=== PATIENT | female | born 1950 | race Caucasian/White ===

== ENCOUNTER 2017-04-09 16:02 | Emergency (ER) | payer OTHER ==
[~2017-04-09] VITALS: Ht 160 cm; Wt 70.9 kg
[2017-04-09 16:16] VITALS: Ht 160 cm; Wt 70.9 kg
[2017-04-09] MEDS ORDERED: IBUPROFEN 600 MG TAB PO ONE (19:00)
[2017-04-09] MEDS ORDERED: HYDROCODONE/APAP (5/325) TAB PO ONE (19:00)
--- NOTE | 2017-04-09 19:05 | ERD ---
ER Documentation Chief Complaint Chief Complaint left hand pain s/p slip and fall today, no head injury HPI 66-year-old female who states that she had a slip and fall today in the kitchen to her left hand and is complaining of left palmar pain, left wrist pain. Patient was in the kitchen and there was a slippery area which she had felt herself falling backwards and she caught herself with her left hand outstretched behind her hyperextended. Patient complains of diffuse pain in her left palm going to her left wrist, is achy, worse in movement better at rest. She denies any paresthesias or weakness. The patient denies any other injuries. She denies syncope, dizziness, palpitations, shortness of breath, chest pain. ROS All systems reviewed and are negative except as per history of present illness. Medications Home Meds Active Scripts Hydrocodone/Acetaminophen (Bell Buckle 5-325 Tablet) 1 Each Tablet, 1 TAB PO Q6H Y for PAIN, #7 TAB Prov:REBECCA SAN PA-C 04/09/17 Ibuprofen* (Motrin*) 400 Mg Tab, 400 MG PO Q6, #30 TAB Prov:REBECCA SAN PA-C 04/09/17 Allergies Allergies: Coded Allergies: No Known Drug Allergies (Verified Allergy, Unknown, 04/09/17) PMhx/Soc Medical and Surgical Hx: pt denies Medical Hx Hx Alcohol Use: No Hx Substance Use: No Hx Tobacco Use: No Physical Exam Vitals Vital Signs Date Time Temp Pulse Resp B/P Pulse Ox O2 Delivery O2 Flow Rate FiO2 04/09/17 16:16 Physical Exam General: Well-developed, well-nourished. The patient appears in no acute distress. HEENT: Head is normocephalic, atraumatic. No scleral icterus. Neck: Supple. Nontender. Lungs: Clear to auscultation. Normal air movement. Heart: Regular rate and rhythm. S1 and S2 are normal. No murmurs, gallops, or rubs. Abdomen: Nondistended. Extremities patient has soft tissue swelling the left palm, there is ecchymosis. Soft tissue swelling at the proximal phalanx of left fourth digit. Patient has full range of motion in all digits of the left hand. There is no snuffbox tenderness, radial, ulnar, median nerve intact. Neurologic: Alert and oriented 3. No focal deficits. Normal speech and gait. Skin: Normal turgor. No rash or lesions. Results 24 hrs Current Medications Medications (Trade) Dose Ordered Sig/Kimberly Route PRN Reason Start Time Stop Time Status Last Admin Dose Admin Acetaminophen/ Hydrocodone Bitart (Bell Buckle (5/325)) 1 tab ONCE ONCE PO 04/09/17 19:00 04/09/17 19:01 DC 04/09/17 19:04 Ibuprofen (Motrin) 600 mg ONCE ONCE PO 04/09/17 19:00 04/09/17 19:01 DC 04/09/17 19:04 DIAGNOSTIC IMAGING REPORT Patient: RICHARDSON COFFMAN : 1950 Age: 66 Sex: F MR #: [id number] DOS: 04/09/171855 Ordering MD: REBECCA SAN PA-C Location: [facility] Room/Bed: PROCEDURE: XR LEFT WRIST. CLINICAL INDICATION: The patient fell. TECHNIQUE: 4 views of the left wrist were obtained. COMPARISON: No prior studies are available for comparison. FINDINGS: There is moderate arthrosis of the first carpal metacarpal joint and triscaphe joint. No fracture, subluxation or dislocation is identified. The bones are osteopenic. Bony alignment is within normal limits.. IMPRESSION: 1. No evidence for fracture, subluxation, or dislocation. 2. Moderate arthrosis of the triscaphe joint and first carpal metacarpal joint. RPTAT: XX .Elio Andrade MD, MD Date Time Electronically viewed and signed by .Elio Andrade MD, MD on 04/09/2017 19: 39 .T/ CC: REBECCA SAN PA-C DIAGNOSTIC IMAGING REPORT Patient: RICHARDSON COFFMAN : 1950 Age: 66 Sex: F MR #: [id number] DOS: 04/09/171855 Ordering MD: REBECCA SAN PA-C Location: [facility] Room/Bed: PROCEDURE: XR Left Hand. CLINICAL INDICATION: The patient fell. TECHNIQUE: Three views of the left hand were obtained. COMPARISON: No prior studies are available for comparison. FINDINGS: There is moderate arthrosis of the first carpal metacarpal joint and triscaphe joint. The bones are osteopenic. Bony alignment is within normal limits. No evidence for fracture, subluxation, or dislocation. A marker was placed adjacent to the hypo thenar region of the left hand. No underlying fractures seen. No underlying radiopaque foreign body or soft tissue air is seen. IMPRESSION: 1. No evidence for fracture, subluxation, or dislocation. 2. Moderate first carpal-metacarpal joint and triscaphe joint arthrosis. 3. Osteopenia. 4. No radiopaque foreign body or soft tissue air is seen. RPTAT: XX .Elio Andrade MD, MD Date Time Electronically viewed and signed by .Elio Andrade MD, MD on 04/09/2017 19: 42 .T/ CC: REBECCA SAN PA-C Procedures/MDM ED course: The patient was given ibuprofen and Bell Buckle. Splinting: The patient's left wrist and hand are placed in a Velcro wrist splint. Splint Assessment: Neurovascularly intact post splint placement with good fit. Patient's left fourth digit was splinted with a metal finger splint. Splint Assessment: Neurovascularly intact post splint placement with good fit. Her left arm was placed in a sling for comfort. Medical decision making: The patient is a 66-year-old female presenting with left hand and left wrist pain after slip and fall in the kitchen today. No other injuries noted. Patient's x-rays of the left wrist and left hand reviewed by the radiologist are negative for acute fracture dislocation, she does have joint space narrowing most consistent with arthritis. The patient does have pain at this time she was placed in a Velcro wrist splint as well as metal finger splint her left fourth digit. She will be given a short course of Bell Buckle and ibuprofen for pain. Departure Diagnosis: Primary Impression: Injury of hand Additional Impressions: Sprain, finger Left wrist sprain Condition: Good REBECCA SAN PA-C Apr 09, 2017 19:05
--- NOTE | 2017-04-09 19:40 | RADRPT ---
PROCEDURE: XR LEFT WRIST. CLINICAL INDICATION: The patient fell. TECHNIQUE: 4 views of the left wrist were obtained. COMPARISON: No prior studies are available for comparison. FINDINGS: There is moderate arthrosis of the first carpal metacarpal joint and triscaphe joint. No fracture, s ubluxation or dislocation is identified. The bones are osteopenic. Bony alignment is within normal l imits.. IMPRESSION: 1. No evidence for fracture, subluxation, or dislocation. 2. Moderate arthrosis of the triscaphe joint and first carpal metacarpal joint. RPTAT: XX .Elio Andrade MD, MD Date Time Electronically viewed and signed by .Elio Andrade MD, MD on 04/09/2017 19:39 .T/
--- NOTE | 2017-04-09 19:42 | RADRPT ---
PROCEDURE: XR Left Hand. CLINICAL INDICATION: The patient fell. TECHNIQUE: Three views of the left hand were obtained. COMPARISON: No prior studies are available for comparison. FINDINGS: There is moderate arthrosis of the first carpal metacarpal joint and triscaphe joint. The bones are osteopenic. Bony alignment is within normal limits. No evidence for fracture, subluxation, or disloc ation. A marker was placed adjacent to the hypo thenar region of the left hand. No underlying fractu res seen. No underlying radiopaque foreign body or soft tissue air is seen. IMPRESSION: 1. No evidence for fracture, subluxation, or dislocation. 2. Moderate first carpal-metacarpal joint and triscaphe joint arthrosis. 3. Osteopenia. 4. No radiopaque foreign body or soft tissue air is seen. RPTAT: XX .Elio Andrade MD, Date Time Electronically viewed and signed by .Elio Andrade MD, on 04/09/2017 19:42 .T/
[2017-04-09] MEDS ORDERED: HYDR-906 PO (19:47)
[2017-04-09] MEDS ORDERED: IBUP400T22 PO (19:47)
[2017-04-09 19:54] VITALS: BP 153/96; PULSE 67; RESP 16; TEMP 97.5
== END 2017-04-09 19:55 | disposition home or self-care (01) ==
LOC: FTE 16:02
DX: S63.502A Unspecified sprain of left wrist, initial encounter (principal); W01.0XXA Fall on same level from slipping, tripping and stumbling without subsequent striking against object, initial encounter; Y92.000 Kitchen of unspecified non-institutional (private) residence as the place of occurrence of the external cause
CPT/HCPCS: 29125; 73110; 73130; Z7502; Z7610

== ENCOUNTER 2017-04-12 10:04 | Emergency (ER) | payer OTHER ==
[~2017-04-12] VITALS: Ht 157.5 cm; Wt 69.6 kg
[~2017-04-12 10:04] MED LIST: HYDR-906 PO; IBUP400T22 PO
[2017-04-12 10:05] VITALS: Ht 157.5 cm; Wt 69.6 kg
[2017-04-12] MEDS ORDERED: ONDANSETRON (ODT) 4 MG TAB ODT STA (10:42)
--- NOTE | 2017-04-12 10:54 | ERD ---
ER Documentation Chief Complaint Chief Complaint HAS LEFT HAND PAIN AND SWELLING SEEN HERE 3 DAYS AGO HPI 66-year-old female presenting 3 days status post backwards fall with impact to right hand/wrist. Was evaluated and x-rays were obtained in the ER. Patient was sent home with Newberry and ibuprofen. Patient states that the swelling and pain has increased despite prescribed medication. Has been wearing splint the entire time without removal. Pain 10/10 and worse with lowering of the right extremity. Denies numbness, tingling, loss of range of motion. Patient has no other complaints and describes no other associated manifestations. ROS All systems reviewed and are negative except as per history of present illness. Medications Home Meds Active Scripts Hydrocodone/Acetaminophen (Newberry 5-325 Tablet) 1 Each Tablet, 1 TAB PO Q6H Y for PAIN, #7 TAB Prov:REBECCA SAN PA-C 04/09/17 Ibuprofen* (Motrin*) 400 Mg Tab, 400 MG PO Q6, #30 TAB Prov:REBECCA SAN PA-C 04/09/17 Allergies Allergies: Coded Allergies: No Known Drug Allergies (Verified Allergy, Unknown, 04/09/17) PMhx/Soc Medical and Surgical Hx: pt denies Medical Hx, pt denies Surgical Hx Hx Alcohol Use: No Hx Substance Use: No Hx Tobacco Use: No Smoking Status: Never smoker Physical Exam Vitals Vital Signs Date Time Temp Pulse Resp B/P Pulse Ox O2 Delivery O2 Flow Rate FiO2 04/12/17 10:05 98.0 77 18 147/74 99 Physical Exam Const: Overweight 66-year-old female no acute distress Ext: Marked swelling of the right hand. Mild discrete anatomical snuffbox tenderness. Decreased range of motion secondary to pain. Skin: No petechiae or rashes Head: Atraumatic Eyes: Normal Conjunctiva. PERRLA, EOMI. Neck: Full range of motion..~ No meningismus. Resp: Equal chest expansion. No tripoding or use of accessory muscles. Cardio: Cap refill less than 2 seconds. Radial pulses 2+ bilaterally. Back: No midline or flank tenderness Neur: Awake and alert. Sensation intact. Psych: Normal Mood and Affect Results 24 hrs Current Medications Medications (Trade) Dose Ordered Sig/Kimberly Route PRN Reason Start Time Stop Time Status Last Admin Dose Admin Oxycodone/ Acetaminophen (Percocet (5/ 325)) 1 tab ONCE ONCE PO 04/12/17 11:00 04/12/17 11:01 DC 04/12/17 10:47 Ondansetron HCl (Zofran Odt) 4 mg ONCE STAT ODT 04/12/17 10:42 04/12/17 10:43 DC 04/12/17 10:47 Procedures/MDM Patient returns to emergency department 3 days status post fall backwards with injury to the left wrist. Patient has mild anatomical snuffbox tenderness. Radiographs are repeated. Radiographs are read by the radiologist given the following impressions: No acute osseous abnormality including fracture or dislocation. Soft tissue swelling. No evidence of navicular fracture. At this time I have no suspicion for acute bony pathology, neurovascular compromise including compartment syndrome. Most likely diagnosis is hand contusion. Have recommended that the patient follow-up with orthopedics in the next week. Referrals has been given. Thumb spica has been applied due to snuffbox tenderness. N/V intact after application. 2 3 day follow-up recommended. Ortho list given. I have spoke with the patient regarding their condition and future management. They have verbally responded that they understand their status and treatment plan. The patients vitals are stable, and their current condition is appropriate for discharge. The patient will be given discharge instructions with return precautions. Departure Diagnosis: Primary Impression: Injury of hand Encounter type: initial encounter Laterality: left Qualified Code: S69.92XA - Injury of left hand, initial encounter Condition: Stable Additional Instructions: Follow-up with orthopedics in the next 3 days. Return the the emergency department immediately if symptoms worsen or change. If you have any questions regarding medications, ask your pharmacist or us before you leave. If any adverse reactions occur while taking your medications, discontinue the treatment and return to the emergency department immediately. Take your medications as directed, and complete the entire course of treatment. LESLIE SADLER PA-C Apr 12, 2017 10:54
[2017-04-12] MEDS ORDERED: OXYCODONE/ACETAMINOPHEN (5/325) TAB PO ONE (11:00)
[2017-04-12] MEDS ORDERED: HYDR-906 PO (12:45)
[2017-04-12 12:48] VITALS: BP 125/68; PULSE 72; RESP 18
--- NOTE | 2017-04-12 16:51 | RADRPT ---
PROCEDURE: Left hand series CLINICAL INDICATION: Pain status post fall TECHNIQUE: AP lateral and oblique views of the left hand COMPARISON: None available FINDINGS: No acute fractures or dislocations are present. Joint space narrowing is noted of the trapezium and first metacarpal joint and of the left second through fifth distal interphalangeal joints and proxim al interphalangeal joints. No radiodense foreign bodies are present. IMPRESSION: 1. No acute fractures or dislocations are present. 2. Mild osteoarthritis as indicated above. RPTAT: HDC .Cee Walker MD, MD Date Time Electronically viewed and signed by .Cee Walker MD, on 04/12/2017 11:13 .C/
--- NOTE | 2017-04-12 16:51 | RADRPT ---
PROCEDURE: Left wrist x-ray CLINICAL INDICATION: Trauma. TECHNIQUE: AP, lateral, and oblique views of the left wrist. COMPARISON: None. FINDINGS: There is no evidence of fracture or dislocation. The bones are normal mineralization without cortical destruction. The carpal bones are normally aligned and joint space is well-maintained. The remaining visualized bones of the hand are unremarkable. No soft tissue abnormality. IMPRESSION: 1. No evidence of fracture or dislocation. If clinical symptoms persist, CT or MRI may be considered for further evaluation of the navicular bone. RPTAT:AAJJ Physician Ashely Date Time Electronically viewed and signed by Physician Ashely on 04/12/2017 11:19 ADITHYA/
--- NOTE | 2017-04-12 16:51 | RADRPT ---
PROCEDURE: Left forearm series CLINICAL INDICATION: Pain status post trauma and fall TECHNIQUE: AP and lateral views COMPARISON: None available FINDINGS: No acute fractures or dislocations are noted. Joint space narrowing and degenerative changes are aga in noted of the trapezium and first metacarpal joint and the radiocarpal joints. No soft tissue swel ling or radiodense foreign bodies present IMPRESSION: 1. No acute fractures or dislocations. 2. Osteoarthritis as noted above RPTAT: HDC .Cee Walker MD, Date Time Electronically viewed and signed by .Cee Walker MD, MD on 04/12/2017 11:22 .C/
== END 2017-04-12 12:49 | disposition home or self-care (01) ==
LOC: FTE 10:04
DX: S69.92XA Unspecified injury of left wrist, hand and finger(s), initial encounter (principal); W18.39XA Other fall on same level, initial encounter; Y92.9 Unspecified place or not applicable
CPT/HCPCS: 29125; 73090; 73110; 73130; Z7502; Z7610

== ENCOUNTER 2017-06-08 12:02 | Emergency (ER) | END 2017-06-08 18:46 | disposition home or self-care (01) ==

== ENCOUNTER 2017-10-08 10:03 | Emergency (ER) | END 2017-10-08 14:15 | disposition home or self-care (01) ==

== ENCOUNTER 2018-01-29 23:26 | Observation (INO) | END 2018-01-31 18:00 | disposition home or self-care (01) ==

== ENCOUNTER 2018-06-13 09:43 | Emergency (ER) | payer OTHER ==
[~2018-06-13] VITALS: Ht 165.1 cm; Wt 70.9 kg
[~2018-06-13 09:43] MED LIST changes: +ATOR20TA65 PO; +GLIM2TAB PO; -HYDR-906 PO; -IBUP400T22 PO; +METF500T PO
[2018-06-13 09:46] VITALS: Ht 165.1 cm; Wt 70.9 kg
[2018-06-13] MEDS ORDERED: SOD CHLORIDE 0.9% 1,000 ML IV STA (10:22)
[2018-06-13] MEDS ORDERED: KETOROLAC 15 MG INJ IV STA (10:23)
[2018-06-13] MEDS ORDERED: LORAZEPAM 2 MG INJ IV ONE (10:30)
[2018-06-13] MEDS ORDERED: CYCLOBENZAPRINE 10 MG TAB PO ONE (10:30)
--- NOTE | 2018-06-13 10:30 | ERD ---
ER Documentation Chief Complaint Chief Complaint pricking like pain @ left chest area radiating to leftt arm HPI This is a 67-year-old female with a known history of hypertension. The patient presents to the emergency department stating she awoke this morning 4 hours prior to arrival and developed a numbness and tingling-like sensation of her left arm left chest and left lower extremity. She indicates that she was having mild pain in her back over the past several days. The pain began to radiate down the lateral aspect of her left leg. She denies any saddle anesthesia. She has had no fevers or shaking or chills. She denies any changes in her bladder or bowel frequency and states she has no history of trauma to her lower back. She also denied any chest pressure contrary to the triage note. She has no shortness of breath. She had no associated symptoms of nausea vomiting or diaphoresis. She states that she is been very anxious over the past several months that she currently is living with a friend and does not have a place to stay on her own. She took aspirin just prior to arrival. She was seen and evaluated in the emergency department and admitted to the hospital 2 weeks ago for chest pressure and had a negative stress test. ROS All systems reviewed and are negative except as per history of present illness. Medications Home Meds Active Scripts Atorvastatin Calcium (Atorvastatin Calcium) 20 Mg Tablet, 20 MG PO QHS for 60 Days, #60 TAB 5 Refills Prov:JOSE HARTMANN MD 01/31/18 Glimepiride* (Glimepiride*) 2 Mg Tablet, 2 MG PO WITH BREAKFAST for 60 Days, #60 TAB Prov:JOSE HARTMANN MD 01/31/18 Metformin Hcl (Glucophage) 500 Mg Tablet, 1000 MG PO BID WITH MEALS for 90 Days, #180 TAB 5 Refills Prov:JOSE HARTMANN MD 01/31/18 Allergies Allergies: Coded Allergies: No Known Drug Allergies (Verified Allergy, Unknown, 01/29/18) PMhx/Soc History of Surgery: No (gallbladder removal) Anesthesia Reaction: No Hx Neurological Disorder: No Hx Respiratory Disorders: No Hx Cardiac Disorders: Yes (HTN) Hx Psychiatric Problems: No Hx Alcohol Use: No Hx Substance Use: No Hx Tobacco Use: Yes Physical Exam Vitals Vital Signs Date Temp Pulse Resp B/P (MAP) Pulse Ox O2 O2 Flow FiO2 Time Delivery Rate 06/13/18 98.4 80 18 151/67 98 09:46 (95) Physical Exam Constitutional:Well-developed. Well-nourished. Patient appeared anxious. HEENT:Normocephalic. Atraumatic.Pupils were equal round reactive to light. Moist mucous membranes.No tonsillar exudates. Neck: No nuchal rigidity. No lymphadenopathy. No posterior cervical spine tenderness or step-offs. Respiratory: Not using accessory muscles of respiration.Lungs were clear to auscultation bilaterally. No rhonchi. No rales. No wheezing. Cardiovascular: Regular rate regular rhythm.No murmurs. No rubs were appreciated.S1, S2 normal. Distal pulses are palpable 2+ bilaterally. Reproducible left substernal chest wall tenderness with no crepitus no ecchymosis no flail chest and this was exacerbated with abduction of the left upper extremity. GI: Abdomen was soft. Nontender. Non Distended. No pulsatile abdominal masses or bruits. No rebound. No guarding. Bowel sounds were present and normal. Muscle skeletal: Full range of motion of both the upper and lower extremities bilaterally.Normal muscle tone.No assymetrical calf tenderness or swelling. Straight leg test positive on the left. Negative on the right. No tenderness with palpation percussion of the thoracic or lumbar spinous processes. Skin: No petechia, no purpura. No lesions on the palms or the soles of the feet. No maculopapular rash. NEURO: Patient was alert, awake, orientated x3.No facial droop. Gait observed and normal with no ataxia.Speech had regular rate and rhythm. No focal neurological deficits. Results 24 hrs Current Medications Medications Dose Sig/Kimberly Start Time Status Last (Trade) Ordered Route PRN Stop Time Admin Dose Reason Admin Sodium 1,000 ml @ Q1H STAT 06/13/18 Chloride 1,000 mls/hr IV 10:22 06/13/18 11:21 Lorazepam 0.5 mg ONCE ONCE 06/13/18 DC (Ativan) IV 10:30 06/13/18 10:31 10 mg ONCE ONCE 06/13/18 DC Cyclobenzapri PO 10:30 ne HCl 06/13/18 10:31 (Flexeril) Ketorolac 15 mg ONCE STAT 06/13/18 DC Tromethamine IV 10:23 (Toradol) 06/13/18 10:24 Procedures/MDM The patient presented to the emergency department complaining of chest pain. My clinical evaluation and workup was to distinguish minor causes of chest pain from acute life threatening cardiopulmonary causes such as myocardial infarction, pulmonary embolism, aortic dissection, esophageal rupture, cardiac tamponade, The patient was placed on a cardiac tech, continuous pulse oximetry and IV access established by nursing staff. The patient was given 0.5 mg of Ativan intravenously for mild anxiety. She was requesting anxiety medication. The patient was also given IV Toradol and Flexeril she also appeared to be experiencing mild pain from possible sciatica. She had no physical exam findings to suggest an abdominal aortic aneurysm. 12 Lead EKG tracing ordered and reviewed by myself showed: Normal sinus rhythm of 76 bpm and no arrhythmia. NE interval normal. QRS duration normal. No ST segment elevation No ST segment depression. No changes consistent with acute ischemia. The patients chest pain was reproduced by palpation and horizontal flexion of the arms. It was my clinical impression that the pain was a result of inflamma tion of the skin and subcutaneous structures of the chest wall versus myocardial ischemia. I felt the patient had low-risk chest pain and could therefore be safely discharged with close follow-up. The patient was also requesting antianxiety medication. The patient was given a prescription of Ativan. The patient was not suicidal homicidal denied a social work consult. The patient was discharged home in fair condition. They were instructed to return to the emergency department at any time if there was any worsening of their condition. The patient stated they would follow up with their PCP in the next 24-48 hours to initiate a suitable medication regimen under the care of their PCP as well as to allow their PCP to monitor any drug reactions. The patient was discharged home with prescriptions after they gave informed consent to the new medication. They were also fully informed by myself on the adverse effects and adverse drug interactions in order to provide adequate safeguards to prevent possible adverse reactions to medications. Departure Diagnosis: Primary Impression: Costochondritis, acute Additional Impressions: Sciatica Laterality: left Qualified Codes: M54.32 - Sciatica, left side Anxiety reaction Condition: Fair FARAZ LUO MD Jun 13, 2018 10:30
[2018-06-13] MEDS ORDERED: NAPR-985 PO (10:35)
[2018-06-13] MEDS ORDERED: LORA-441 PO (10:35)
[2018-06-13 12:42] VITALS: BP 121/60; PULSE 78; RESP 20
== END 2018-06-13 12:43 | disposition home or self-care (01) ==
LOC: E/R 09:43
DX: M94.0 Chondrocostal junction syndrome [Tietze] (principal); M54.32 Sciatica, left side; F41.1 Generalized anxiety disorder; I10 Essential (primary) hypertension; Z79.84 Long term (current) use of oral hypoglycemic drugs; Z87.891 Personal history of nicotine dependence
CPT/HCPCS: 36415; 71045; 80053; 82550; 82553; 83880; 84484; 85025; 85610; 85730; 93005; 96374; 96375; 99285; J1885; J2060; J7030

== ENCOUNTER 2018-09-18 10:37 | Emergency (ER) | payer OTHER ==
[~2018-09-18] VITALS: Ht 167.6 cm; Wt 68.2 kg
[~2018-09-18 10:37] MED LIST changes: +LORA-441 PO; +NAPR-985 PO
[2018-09-18 11:07] VITALS: Ht 167.6 cm; Wt 68.2 kg
--- NOTE | 2018-09-18 11:27 | ERD ---
ER Documentation Chief Complaint Chief Complaint c/o headache, dizziness, left arm pain/abscess HPI This is a 68-year-old woman complaining of headache, dizziness, generalized weakness x1 day. She also complains of a small red bump to the left mid upper arm. She denies neck pain or neck stiffness, no fevers or chills, no chest pain or shortness of breath, no loss of consciousness, no abdominal pain, no dysuria. Patient is status post cholecystectomy and appendectomy many years ago. ROS All systems reviewed and are negative except as per history of present illness. Medications Home Meds Active Scripts Ibuprofen* (Motrin*) 400 Mg Tab, 400 MG PO Q8 PRN for PAIN AND/OR INFLAMMATION, #30 TAB Prov:GATITO FRANCIS MD 09/18/18 Cephalexin* (Keflex*) 500 Mg Capsule, 500 MG PO QID for 5 Days, CAP Prov:GATITO FRANCIS MD 09/18/18 Discontinued Scripts Naproxen* (Naprosyn*) 500 Mg Tablet, 500 MG PO BID PRN for PAIN AND/OR INFLAMM ATION, #30 TAB Prov:FARAZ LUO MD 06/13/18 Lorazepam* (Ativan*) 0.5 Mg Tablet, 0.5 MG PO Q8H PRN for ANXIETY, #10 TAB Prov:FARAZ LUO MD 06/13/18 Atorvastatin Calcium (Atorvastatin Calcium) 20 Mg Tablet, 20 MG PO QHS for 60 Days, #60 TAB 5 Refills Prov:JOSE HARTMANN MD 01/31/18 Glimepiride* (Glimepiride*) 2 Mg Tablet, 2 MG PO WITH BREAKFAST for 60 Days, #60 TAB Prov:JOSE HARTMANN MD 01/31/18 Metformin Hcl (Glucophage) 500 Mg Tablet, 1000 MG PO BID WITH MEALS for 90 Days, #180 TAB 5 Refills Prov:JOSE HARTMANN MD 01/31/18 Allergies Allergies: Coded Allergies: No Known Drug Allergies (Verified Allergy, Unknown, 09/18/18) PMhx/Soc Diabetes mellitus, hypertension History of Surgery: No (gallbladder removal) Anesthesia Reaction: No Hx Neurological Disorder: No Hx Respiratory Disorders: No Hx Cardiac Disorders: Yes (HTN) Hx Psychiatric Problems: No Hx Alcohol Use: No Hx Substance Use: No Hx Tobacco Use: Yes FmHx Family History: diabetes Physical Exam Vitals Vital Signs Date Temp Pulse Resp B/P (MAP) Pulse Ox O2 O2 Flow FiO2 Time Delivery Rate 09/18/18 99.2 67 16 182/73 98 11:07 (109) Physical Exam GENERAL: Well-developed, well-nourished, well-hydrated, in no apparent distress, looks nontoxic in appearance HEENT: Moist mucous membranes, pink conjunctiva, no cervical spine tenderness or step-off deformities, no goiter, no jaundice or icterus, extraocular movements intact without pain. No submandibular induration, and no pharyngeal erythema NEURO: Alert and oriented 3, cranial nerves II through XII intact bilaterally, pupils equal round reactive to light, no focal deficits or facial asymmetry, sensation intact distally Strength 5/5 in upper and lower extremities bilaterally CARDIAC: Regular rate and rhythm, no murmurs rubs or gallops LUNGS: Clear bilaterally no wheezing crackles or stridor ABDOMEN: Soft nontender, no guarding, no rigidity, no rebound, no psoas sign no obturator sign. Normoactive bowel sounds SKIN: Warm and dry to touch, small indurated erythematous insect bite to the mid left upper arm without skin induration, no vesicles or pustules, no discharge EXTREMITIES: No clubbing cyanosis or edema, calves are bilaterally symmetrical, no Homans sign, no popliteal cord sign. Distal pulses equal and bilateral PSYCH: Normal affect without agitation or irritability Result Diagram: 09/18/18 1145 09/18/18 1145 Results 24 hrs Laboratory Tests Test 09/18/18 11:45 White Blood Count 5.1 10^3/ul Red Blood Count 4.79 10^6/ul Hemoglobin 15.1 g/dl Hematocrit 43.4 % Mean Corpuscular Volume 90.6 fl Mean Corpuscular Hemoglobin 31.5 pg Mean Corpuscular Hemoglobin Concent 34.8 g/dl Red Cell Distribution Width 11.7 % Platelet Count 292 10^3/UL Mean Platelet Volume 9.6 fl Immature Granulocytes % 0.200 % Neutrophils % 57.3 % Lymphocytes % 32.0 % Monocytes % 7.7 % Eosinophils % 1.6 % Basophils % 1.2 % Nucleated Red Blood Cells % 0.0 /100WBC Immature Granulocytes # 0.010 10^3/ul Neutrophils # 2.9 10^3/ul Lymphocytes # 1.6 10^3/ul Monocytes # 0.4 10^3/ul Eosinophils # 0.1 10^3/ul Basophils # 0.1 10^3/ul Nucleated Red Blood Cells # 0.0 10^3/ul Urine Color YELLOW Urine Clarity SLIGHTLY CLOUDY Urine pH 5.0 Urine Specific [place] 1.017 Urine Ketones NEGATIVE mg/dL Urine Nitrite NEGATIVE mg/dL Urine Bilirubin NEGATIVE mg/dL Urine Urobilinogen NEGATIVE mg/dL Urine Leukocyte Esterase 1+ Patricia/ul Urine Microscopic RBC 1 /HPF Urine Microscopic WBC 1 /HPF Urine Squamous Epithelial Cells FEW /HPF Urine Mucus FEW /HPF Urine Hemoglobin NEGATIVE mg/dL Urine Glucose NEGATIVE mg/dL Urine Total Protein NEGATIVE mg/dl Sodium Level 142 mmol/L Potassium Level 4.0 mmol/L Chloride Level 104 mmol/L Carbon Dioxide Level 31 mmol/L Anion Gap 7 Blood Urea Nitrogen 14 mg/dl Creatinine 0.50 mg/dl Est Glomerular Filtrat Rate mL/min > 60 mL/min Glucose Level 220 mg/dl Calcium Level 9.7 mg/dl Total Bilirubin 0.8 mg/dl Direct Bilirubin 0.00 mg/dl Indirect Bilirubin 0.8 mg/dl Aspartate Amino Transf (AST/SGOT) 28 IU/L Alanine Aminotransferase (ALT/SGPT) 35 IU/L Alkaline Phosphatase 104 IU/L Troponin I < 0.012 ng/ml Total Protein 8.1 g/dl Albumin 4.3 g/dl Globulin 3.80 g/dl Albumin/Globulin Ratio 1.13 Lipase 38 U/L Current Medications Medications Dose Sig/Kimberly Start Time Status Last (Trade) Ordered Route PRN Stop Time Admin Dose Reason Admin Sodium 1,000 ml @ Q1H STAT 09/18/18 DC 09/18/18 Chloride 1,000 mls/hr IV 11:30 11:55 09/18/18 12:29 Ketorolac 15 mg ONCE STAT 09/18/18 DC 09/18/18 Tromethamine IV 11:30 11:55 (Toradol) 09/18/18 11:32 Ceftriaxone 50 ml @ ONCE ONCE 09/18/18 09/18/18 Sodium 100 mls/hr IVPB 12:30 12:32 09/18/18 12:59 Procedures/MDM IV line was established patient was placed on desk monitor rhythm strip revealed a sinus rhythm at about 60 bpm with upright P and T waves. Patient was afebrile I administered 1 L normal saline IV and Toradol 15 mg IV for complaints of pain. EKG performed, read by me: 61 bpm, normal sinus rhythm, normal axis, no acute ST segment changes, narrow QRS complex, with good R-wave progression in precordial leads. Urine analysis was positive for infection I treated her here with ceftriaxone 1 g IV CBC and electrolytes were normal, liver function tests were normal, troponin negative Differential diagnoses considered, included but not limited to acute coronary syndrome, pulmonary embolism, aortic dissection, abdominal aortic aneurysm, sepsis, stroke, meningitis, encephalitis, pneumonia, appendicitis, cholec ystitis, bowel obstruction, pyelonephritis, nephrolithiasis, cystitis, as well as metabolic, hematologic, and electrolyte abnormalities. As well as abscess, cellulitis, fractures, and dislocations. Patient feels much better at this time, and vital signs are normal, symptoms have improved. I did give strict instructions to return to the ED if symptoms continue or worsen, patient will otherwise follow-up with primary care physician. Patient understood instructions and agreed to plan. Disclaimer: Inadvertent spelling and grammatical errors are likely due to EHR/dictation software use and do not reflect on the overall quality of patient care. Also, please note that the electronic time recorded on this note does not necessarily reflect the actual time of the patient encounter. Departure Diagnosis: Primary Impression: Acute UTI Additional Impression: Insect bite Encounter type: initial encounter Site of insect bite: upper arm Laterality: left Qualified Codes: S40.862A - Insect bite (nonvenomous) of left upper arm, initial encounter; W57.XXXA - Bitten or stung by nonvenomous insect and other nonvenomous arthropods, initial encounter Condition: GATITO Corral MD September 18, 2018 11:27
[2018-09-18] MEDS ORDERED: KETOROLAC 15 MG INJ IV STA (11:30)
[2018-09-18] MEDS ORDERED: SOD CHLORIDE 0.9% 1,000 ML IV STA (11:30)
[2018-09-18] MEDS ORDERED: CEFTRIAXONE 1 GM/50 ML (PMX) 50 ML IVPB ONE (12:30)
[2018-09-18] MEDS ORDERED: IBUP-1561 PO (12:40)
[2018-09-18] MEDS ORDERED: CEPH-443 PO (12:40)
[2018-09-18 13:40] VITALS: BP 128/69; PULSE 76; RESP 18
== END 2018-09-18 13:41 | disposition home or self-care (01) ==
LOC: E/R 10:37
DX: S40.862A Insect bite (nonvenomous) of left upper arm, initial encounter (principal); E11.9 Type 2 diabetes mellitus without complications; I10 Essential (primary) hypertension; N39.0 Urinary tract infection, site not specified; W57.XXXA Bitten or stung by nonvenomous insect and other nonvenomous arthropods, initial encounter; Y92.9 Unspecified place or not applicable
CPT/HCPCS: 36415; 80053; 81001; 83690; 84484; 85025; 93005; 96374; 96375; 99284; J0696; J1885; J7030

== ENCOUNTER 2018-10-29 16:07 | Emergency (ER) | payer OTHER ==
[~2018-10-29] VITALS: Ht 167.6 cm; Wt 70.3 kg
[~2018-10-29 16:07] MED LIST changes: -ATOR20TA65 PO; +CEPH-443 PO; -GLIM2TAB PO; +IBUP-1561 PO; -LORA-441 PO; -METF500T PO; -NAPR-985 PO
[2018-10-29 16:08] VITALS: BP 159/74; PULSE 83; RESP 18; Ht 167.6 cm; Wt 70.3 kg
[2018-10-29] MEDS ORDERED: KETOROLAC 30 MG INJ IM STA (16:23)
[2018-10-29] MEDS ORDERED: NAPR-985 PO (16:27)
--- NOTE | 2018-10-29 16:30 | ERD ---
ER Documentation Chief Complaint Chief Complaint L wrist pain for 1 hour s/p fall. no KO HPI This is a 68-year-old woman complaining of 2 years of left wrist pain, she was triaged as having a fall and also triaged as having pain for 1 hour although patient states she fell 2 years ago and since that fall 2 years ago she has had weekly and sometimes daily episodes of left wrist pain. She states 2 years ago she did fracture the wrist but no surgery was ever performed and since then she has had intermittent pain. She has had no redness or swelling, no bruising, no complaints of paresis or paresthesias ROS All systems reviewed and are negative except as per history of present illness. Medications Home Meds Active Scripts Naproxen* (Naprosyn*) 500 Mg Tablet, 500 MG PO BID PRN for PAIN AND/OR INFLAMMATION, #30 TAB Prov:GATITO FRANCIS MD 10/29/18 Ibuprofen* (Motrin*) 400 Mg Tab, 400 MG PO Q8 PRN for PAIN AND/OR INFLAMMATION, #30 TAB Prov:GATITO FRANCIS MD 09/18/18 Cephalexin* (Keflex*) 500 Mg Capsule, 500 MG PO QID for 5 Days, CAP Prov:GATITO FRANCIS MD 09/18/18 Allergies Allergies: Coded Allergies: No Known Drug Allergies (Verified Allergy, Unknown, 09/18/18) PMhx/Soc History of Surgery: No (TOBIN,APPE) Anesthesia Reaction: No Hx Neurological Disorder: No Hx Respiratory Disorders: No Hx Cardiac Disorders: Yes (HTN) Hx Psychiatric Problems: No Hx Alcohol Use: No Hx Substance Use: No Hx Tobacco Use: Yes Smoking Status: Never smoker FmHx Family History: No diabetes Physical Exam Vitals Vital Signs Date Temp Pulse Resp B/P (MAP) Pulse Ox O2 O2 Flow FiO2 Time Delivery Rate 10/29/18 97.6 83 18 159/74 97 16:08 (102) Physical Exam GENERAL: Well-developed, well-nourished, well-hydrated, in no apparent distress, looks nontoxic in appearance CARDIAC: Regular rate and rhythm, no murmurs rubs or gallops LUNGS: Clear bilaterally no wheezing crackles or stridor SKIN: Warm and dry to touch, no abrasions, contusions, or hematomas, no lacerations, no ecchymosis, no target lesions, and without ulcers EXTREMITIES: No clubbing cyanosis or edema, calves are bilaterally symmetrical, no Homans sign, no popliteal cord sign. Distal pulses equal and bilateral PSYCH: Normal affect without agitation or irritability Results 24 hrs Current Medications Medications Dose Sig/Kimberly Start Time Status Last (Trade) Ordered Route PRN Stop Time Admin Dose Reason Admin Ketorolac 30 mg ONCE STAT 10/29/18 DC 10/29/18 Tromethamine IM 16:23 10/29/18 16:33 (Toradol) 16:24 Procedures/MDM Patient has mild chronic bony deformity at the left wrist but no signs of acute fracture, or dislocation. She has no ecchymosis, hematoma, contusion, or abrasion and no signs of acute or recent injury. I did review her old records and she has had multiple x-rays of the left wrist, a CT of the wrist, and an x-ray of the forearm all due to chronic recurrent left wrist pain and possible trauma a few years ago. Her imaging studies reveal joint space narrowing and arthritic changes but no acute fractures. There are no signs of acute trauma at this time and I suspect her pain is due to chronic recurrent episodes or arthritic flare. She has no signs of infection or gout. Patient does not endorse a recent fall in contrast to triage note. I administered Toradol 30 mg IM x1 Patient feels much better at this time, and vital signs are normal, symptoms have improved. I did give strict instructions to return to the ED if symptoms continue or worsen, patient will otherwise follow-up with primary care physician. Patient understood instructions and agreed to plan. Disclaimer: Inadvertent spelling and grammatical errors are likely due to EHR/dictation software use and do not reflect on the overall quality of patient care. Also, please note that the electronic time recorded on this note does not necessarily reflect the actual time of the patient encounter. Departure Diagnosis: Primary Impression: Wrist sprain Encounter type: initial encounter Laterality: left Qualified Codes: S63. 502A - Unspecified sprain of left wrist, initial encounter Additional Impression: Chronic pain syndrome Condition: Good Patient Instructions: Wrist Sprain Referrals: [facility] (PCP) GATITO FRANCIS MD Oct 29, 2018 16:30
== END 2018-10-29 16:44 | disposition home or self-care (01) ==
LOC: E/R 16:07
DX: S63.502A Unspecified sprain of left wrist, initial encounter (principal); I10 Essential (primary) hypertension; G89.4 Chronic pain syndrome; W18.39XA Other fall on same level, initial encounter; Y92.9 Unspecified place or not applicable; Z87.891 Personal history of nicotine dependence
CPT/HCPCS: 96372; 99284; J1885

== ENCOUNTER 2018-11-04 17:34 | Emergency (ER) | payer OTHER ==
[~2018-11-04] VITALS: Ht 170.2 cm; Wt 70.8 kg
[~2018-11-04 17:34] MED LIST changes: +NAPR-985 PO
[2018-11-04 17:35] VITALS: Ht 170.2 cm; Wt 70.8 kg
--- NOTE | 2018-11-04 17:43 | ERD ---
ER Documentation Chief Complaint Chief Complaint epigastric pain w/vomitting, feels like something stuck HPI The patient is a 68-year-old female, presenting to the ER because he feels as if a piece of meat is stuck at the epigastric abdomen while she was eating about 30 minutes ago. She is spitting out saliva, has fever, chills, neck pain, chest pain, dysuria, diarrhea. She was well prior to this happening. She does not smoke nor drink Past medical history: Diabetes mellitus Past surgical history: Cholecystectomy, appendectomy ROS All systems reviewed and are negative except as per history of present illness. Medications Home Meds Active Scripts Pantoprazole* (Protonix*) 40 Mg Tablet.dr, 40 MG PO DAILY, #10 TAB Prov:LESLIE BENTON MD 11/04/18 Metoclopramide* (Reglan*) 10 Mg Tablet, 10 MG PO Q6 PRN for NAUSEA AND/OR VOMITING, #10 TAB Prov:LESLIE BENTON MD 11/04/18 Reported Medications Naproxen* (Naproxen*) 500 Mg Tablet, 500 MG PO BID PRN for INFLAMATION, TAB 11/04/18 Discontinued Scripts Naproxen* (Naprosyn*) 500 Mg Tablet, 500 MG PO BID PRN for PAIN AND/OR INFLAMMATION, #30 TAB Prov:GATITO FRANCIS MD 10/29/18 Ibuprofen* (Motrin*) 400 Mg Tab, 400 MG PO Q8 PRN for PAIN AND/OR INFLAMMATION, #30 TAB Prov:GATITO FRANCIS MD 09/18/18 Cephalexin* (Keflex*) 500 Mg Capsule, 500 MG PO QID for 5 Days, CAP Prov:GATITO FRANCIS MD 09/18/18 Allergies Allergies: Coded Allergies: No Known Drug Allergies (Verified Allergy, Unknown, 11/04/18) PMhx/Soc History of Surgery: No (TOBIN,APPE) Anesthesia Reaction: No Hx Neurological Disorder: No Hx Respiratory Disorders: No Hx Cardiac Disorders: Yes (HTN) Hx Psychiatric Problems: No Hx Alcohol Use: No Hx Substance Use: No Hx Tobacco Use: Yes Physical Exam Vitals Vital Signs Date Temp Pulse Resp B/P (MAP) Pulse Ox O2 O2 Flow FiO2 Time Delivery Rate 11/04/18 98.0 70 17 132/71 98 Room Air 20:17 (91) 11/04/18 69 20 149/78 98 Room Air 18:25 (101) 11/04/18 98.0 70 18 155/79 98 Room Air 17:58 (104) 11/04/18 98.8 77 18 174/85 97 17:35 (114) Physical Exam Const: No acute distress. Head: Atraumatic. Eyes: Normal Conjunctiva. ENT: Normal External Ears, Nose and Mouth. Neck: Full range of motion. No meningismus. Resp: Clear to auscultation bilaterally. Cardio: Regular rate and rhythm. Abd: Soft, non distended, normal bowel sounds, non tender. Skin: No petechiae or rashes. Back: No midline or flank tenderness. Ext: No cyanosis, or edema. Neur: Awake and alert. No focal deficit Psych: Very anxious Result Diagram: 11/04/18180511/04/181805 Results 24 hrs Laboratory Tests Test 11/04/18 18:06 11/04/18 18:12 11/04/18 18:24 11/04/18 18:29 White Blood Count 4.6 10^3/ul Red Blood Count 4.51 10^6/ul Hemoglobin 14.1 g/dl Hematocrit 40.3 % Mean Corpuscular 89.4 fl Volume Mean Corpuscular 31.3 pg Hemoglobin Mean Corpuscular 35.0 g/dl Hemoglobin Concent Red Cell Distribution 11.5 % Width Platelet Count 268 10^3/UL Mean Platelet Volume 9.7 fl Immature Granulocytes 0.200 % % Neutrophils % 50.2 % Lymphocytes % 41.2 % Monocytes % 5.4 % Eosinophils % 1.7 % Basophils % 1.3 % Nucleated Red Blood 0.0 /100WBC Cells % Immature Granulocytes 0.010 10^3/ul # Neutrophils # 2.3 10^3/ul Lymphocytes # 1.9 10^3/ul Monocytes # 0.3 10^3/ul Eosinophils # 0.1 10^3/ul Basophils # 0.1 10^3/ul Nucleated Red Blood 0.0 10^3/ul Cells # Sodium Level 141 mmol/L Potassium Level 3.8 mmol/L Chloride Level 104 mmol/L Carbon Dioxide Level 27 mmol/L Anion Gap 10 Blood Urea Nitrogen 18 mg/dl Creatinine 0.58 mg/dl Est Glomerular Filtrat > 60 mL/min Rate mL/min Glucose Level 275 mg/dl Calcium Level 10.3 mg/dl Total Bilirubin 0.4 mg/dl Direct Bilirubin 0.00 mg/dl Indirect Bilirubin 0.4 mg/dl Aspartate Amino 51 IU/L Transf (AST/SGOT) Alanine 40 IU/L Aminotransferase (ALT/ SGPT) Alkaline Phosphatase 93 IU/L Troponin I < 0.012 ng/ml Total Protein 7.7 g/dl Albumin 4.2 g/dl Globulin 3.50 g/dl Albumin/Globulin Ratio 1.20 Lipase 83 U/L Bedside Glucose 268 mg/dL 279 mg/dL Bedside Urine pH (LAB) 5.0 Bedside Urine Protein Negative (LAB) Bedside Urine Glucose 0.50% (UA) Bedside Urine Ketones 1+ (LAB) Bedside Urine Blood 1+ Bedside Urine Nitrite Negative (LAB) Bedside Urine Negative Leukocyte Esterase (L Current Medications Medications Dose Sig/Kimberly Start Time Status Last (Trade) Ordered Route PRN Stop Time Admin Dose Reason Admin Ondansetron 4 mg ONCE STAT 11/04/18 DC 11/04/18 HCl (Zofran IV 18:04 11/04/18 18:30 Inj) 18:05 Glucagon 1 mg ONCE STAT 11/04/18 DC 11/04/18 (Glucagen) IV 18:06 11/04/18 18:32 18:08 10 mg ONCE ONCE 11/04/18 DC 11/04/18 Metoclopramid IV 19:00 11/04/18 20:03 e HCl 19:01 (Reglan) Procedures/MDM MEDICAL MAKING DECISION: The patient is a 78-year-old female, presenting with possible esophageal food impaction, was treated with Zofran IV and Reglan 10 mg IV for nausea, glucagon 1 mg IV for possible esophageal food impaction with good response. She was able to tolerate liquid and feel well and wanted to go home The differential diagnoses considered include but are not limited to esophagitis, anxiety attack, cholelithiasis, cholecystitis, choledocholithiasis, cholangitis, pancreatitis, hepatitis, gastritis, peptic ulcer disease, gastric ulcer, appendicitis, cystitis, diverticulitis, partial small bowel obstruction. Departure Diagnosis: Primary Impression: Esophageal obstruction due to food impaction Condition: Good Comments The patient's blood pressure was elevated (>120/80) but appears stable without evidence of hypertension emergency or urgency. The patient was counseled about the risks of hypertension and urged to pursue outpatient monitoring and therapy within a week with their primary care physician. She was discharged with Reglan and Protonix I discussed the findings with the patient. I advised the patient to follow-up with the primary physician in about 1-2 days, sooner if needed and return if any concern. Disclaimer: Inadvertent spelling and grammatical errors are likely due to EHR/dictation software use and do not reflect on the overall quality of patient care. Also, please note that the electronic time recorded on this note does not necessarily reflect the actual time of the patient encounter. LESLIE BENTON MD Nov 04, 2018 17:43
[2018-11-04] MEDS ORDERED: NAPR-688 PO (17:58)
[2018-11-04] MEDS ORDERED: ONDANSETRON 4 MG INJ IV STA (18:04)
[2018-11-04] MEDS ORDERED: GLUCAGON 1 MG INJ IV STA (18:06)
[2018-11-04] MEDS ORDERED: METOCLOPRAMIDE 10 MG INJ IV ONE (19:00)
[2018-11-04] MEDS ORDERED: PANT40TA3 PO (20:13)
[2018-11-04] MEDS ORDERED: METO10TA92 PO (20:13)
[2018-11-04 20:17] VITALS: BP 132/71; PULSE 70; RESP 17
== END 2018-11-04 20:45 | disposition home or self-care (01) ==
LOC: E/R 17:34
DX: T18.128A Food in esophagus causing other injury, initial encounter (principal); I10 Essential (primary) hypertension; E11.9 Type 2 diabetes mellitus without complications; R11.10 Vomiting, unspecified; X58.XXXA Exposure to other specified factors, initial encounter; Y92.9 Unspecified place or not applicable; Z87.891 Personal history of nicotine dependence
CPT/HCPCS: 36415; 80053; 81003; 82962; 83690; 84484; 85025; 93005; 96374; 96375; 99284; J1610; J2405; J2765